=== PATIENT | female | born 1955 | race Caucasian/White ===

== ENCOUNTER 2018-08-30 02:52 | Observation (INO) | payer OTHER ==
[~2018-08-30] VITALS: Ht 162.6 cm; Wt 112.5 kg
[~2018-08-30 02:52] MED LIST: AMOX875T PO; CALC1TAB75 PO; ETOD400T PO; FOLI1TAB16 PO; HYDR-3165 PO; HYDR200T71 PO; LEVO137T3 PO; LOSA1TAB22 PO; METH25VI27 SQ; METR70GE14 VG; OFLO10DR21 OT; OMEP40CA5 PO; ONDA4TAB10 PO; ONDA4TAB7 PO; ONDA8TAB12 PO; PROC10TA57 PO; SENIOR MULTIVITAMIN PO; TRAM50TA PO
--- NOTE | 2018-08-30 03:16 | PHYS DOC ---
Adult General Chief Complaint Chief Complaint vomiting HPI HPI 63 years old female with multiple medical problem presented to the emergency department with vomiting and abdominal pain. Patient started yesterday last night she vomited most of the day yesterday and today, pain described as a sharp constant cramps and abdomen all over no urinary symptoms Review of Systems Review of Systems Constitutional: Denies fever or chills [] Eyes: Denies change in visual acuity, redness, or eye pain [] HENT: Denies nasal congestion or sore throat [] Respiratory: Denies cough or shortness of breath [] Cardiovascular: No additional information not addressed in HPI [] : Denies dysuria or hematuria [] Musculoskeletal: Denies back pain or joint pain [] Integument: Denies rash or skin lesions [] Neurologic: Denies headache, focal weakness or sensory changes [] Endocrine: Denies polyuria or polydipsia [] All other systems were reviewed and found to be within normal limits, except as documented in this note. Current Medications Current Medications Current Medications Medications (Trade) Dose Ordered Sig/Isac Start Time Stop Time Status Last Admin Dose Admin Info (Do NOT chart on this entry -- for MONITORING) 1 each PRN DAILY PRN 08/30/18 03:30 09/01/18 03:29 Iohexol (Omnipaque 300 Mg/ml) 75 ml 1X ONCE 08/30/18 03:30 08/30/18 03:31 DC 08/30/18 04:58 75 ML Morphine Sulfate (Morphine 4mg Syringe) 4 mg 1X ONCE 08/30/18 05:00 08/30/18 05:01 DC 08/30/18 04:31 4 MG Ondansetron HCl (Zofran) 4 mg 1X ONCE 08/30/18 04:45 08/30/18 04:48 DC 08/30/18 04:39 4 MG Sodium Chloride 1,000 ml @ 1,000 mls/hr 1X ONCE 08/30/18 03:30 08/30/18 04:29 DC 08/30/18 03:37 1,000 MLS/HR Allergies Allergies Allergies Coded Allergies Type Severity Reaction Last Updated Verified pneumococcal vaccine Allergy Unknown 08/30/18 No codeine Adverse Reaction Intermediate Nausea and Vomiting 08/30/18 Yes hydrocodone Adverse Reaction Intermediate Nausea and Vomiting 08/30/18 Yes Physical Exam Physical Exam Constitutional: Well developed, well nourished, no acute distress, non-toxic appearance. [] HENT: Normocephalic, atraumatic, bilateral external ears normal, oropharynx moist, no oral exudates, nose normal. [] Eyes: PERRLA, EOMI, conjunctiva normal, no discharge. [] Neck: Normal range of motion, no tenderness, supple, no stridor. [] Cardiovascular:Heart rate regular rhythm, no murmur [] Lungs & Thorax: Bilateral breath sounds clear to auscultation [] Abdomen: Bowel sounds normal, soft, tenderness all over, no masses, no pulsatile masses. [] Skin: Warm, dry, no erythema, no rash. [] Back: No tenderness, no CVA tenderness. [] Extremities: No tenderness, no cyanosis, no clubbing, ROM intact, no edema. [] Neurologic: Alert and oriented X 3, normal motor function, normal sensory function, no focal deficits noted. [] Psychologic: Affect normal, judgement normal, mood normal. [] Current Patient Data Vital Signs Vital Signs Date Time Temp Pulse Resp B/P (MAP) Pulse Ox O2 Delivery O2 Flow Rate FiO2 08/30/18 02:55 98.4 101 24 157/88 (111) 96 Room Air Lab Results Laboratory Tests Test 08/30/18 03:48 White Blood Count 9.5 x10^3/uL (4.0-11.0) Red Blood Count 3.87 x10^6/uL (3.50-5.40) Hemoglobin 13.9 g/dL (12.0-15.5) Hematocrit 40.4 % (36.0-47.0) Mean Corpuscular Volume 104 fL (79-100) H Mean Corpuscular Hemoglobin 36 pg (25-35) H Mean Corpuscular Hemoglobin Concent 34 g/dL (31-37) Red Cell Distribution Width 14.8 % (11.5-14.5) H Platelet Count 338 x10^3/uL (140-400) Neutrophils (%) (Auto) 95 % (31-73) H Lymphocytes (%) (Auto) 1 % (24-48) L Monocytes (%) (Auto) 3 % (0-9) Eosinophils (%) (Auto) 1 % (0-3) Basophils (%) (Auto) 0 % (0-3) Neutrophils # (Auto) 9.0 x10^3uL (1.8-7.7) H Lymphocytes # (Auto) 0.1 x10^3/uL (1.0-4.8) L Monocytes # (Auto) 0.3 x10^3/uL (0.0-1.1) Eosinophils # (Auto) 0.0 x10^3/uL (0.0-0.7) Basophils # (Auto) 0.0 x10^3/uL (0.0-0.2) Segmented Neutrophils % 83 % (35-66) H Band Neutrophils % 13 % (0-9) H Lymphocytes % 1 % (24-48) L Monocytes % 2 % (0-10) Basophils % 1 % (0-3) Platelet Estimate Adequate (ADEQUATE) Sodium Level 140 mmol/L (136-145) Potassium Level 4.1 mmol/L (3.5-5.1) Chloride Level 102 mmol/L (98-107) Carbon Dioxide Level 27 mmol/L (21-32) Anion Gap 11 (6-14) Blood Urea Nitrogen 28 mg/dL (7-20) H Creatinine 0.9 mg/dL (0.6-1.0) Estimated GFR (Cockcroft-Gault) 63.0 BUN/Creatinine Ratio 31 (6-20) H Glucose Level 135 mg/dL (70-99) H Calcium Level 8.4 mg/dL (8.5-10.1) L Total Bilirubin 0.5 mg/dL (0.2-1.0) Aspartate Amino Transferase (AST) 29 U/L (15-37) Alanine Aminotransferase (ALT) 49 U/L (14-59) Alkaline Phosphatase 109 U/L (46-116) Total Protein 7.2 g/dL (6.4-8.2) Albumin 3.3 g/dL (3.4-5.0) L Albumin/Globulin Ratio 0.8 (1.0-1.7) L Lipase 167 U/L (73-393) Influenza Type A (Rapid) Negative (NEGATIVE) Influenza Type B (Rapid) Negative (NEGATIVE) EKG EKG [] Radiology/Procedures Radiology/Procedures [] Course & Med Decision Making Course & Med Decision Making Pertinent Labs and Imaging studies reviewed. (See chart for details) [] Final Impression Final Impression [] Problems: (1) Vomiting Qualifiers: Qualified Codes: R11.2 - Nausea with vomiting, unspecified (2) Small bowel obstruction, partial Dragon Disclaimer Dragon Disclaimer This electronic medical record was generated, in whole or in part, using a voice recognition dictation system. GUMARO ARMENTA MD Aug 30, 2018 03:16
[2018-08-30] MEDS ORDERED: IV NORMAL SALINE 1,000ML 1,000 ML IV ONE (03:30)
[2018-08-30] MEDS ORDERED: CONTRAST GIVEN MC PRN (03:30)
[2018-08-30] MEDS ORDERED: ONDANSETRON PF 4 MG/2 ML VIAL. IV ONE ×2 (03:30→04:45)
[2018-08-30] MEDS ORDERED: IOHEXOL 300 MG/ML 75 ML VIAL. IV ONE (03:30)
[2018-08-30 04:20] LABS: BASO % 0 % (0-3); EOS % 1 % (0-3); HEMATOCRIT 40.4 % (36.0-47.0); HEMOGLOBIN 13.9 g/dL (12.0-15.5); LYMPH # 0.1 x10^3/uL (1.0-4.8); LYMPH % 1 % (24-48); MEAN CORPUSCULAR HEMOGLOBIN 36 pg (25-35); MEAN CORPUSCULAR HGB CONC 34 g/dL (31-37); MEAN CORPUSCULAR VOLUME 104 fL (79-100); MONO # 0.3 x10^3/uL (0.0-1.1); MONO % 3 % (0-9); NEUT % 95 % (31-73); PLATELET COUNT 338 x10^3/uL (140-400); RED BLOOD COUNT 3.87 x10^6/uL (3.50-5.40); RED CELL DISTRIBUTION WIDTH 14.8 % (11.5-14.5); WHITE BLOOD COUNT 9.5 x10^3/uL (4.0-11.0)
[2018-08-30] MEDS ORDERED: METH2.5T PO (04:20)
[2018-08-30] MEDS ORDERED: LEVO150T5 PO (04:20)
[2018-08-30 04:38] LABS: INFLUENZA A PATIENT NEGATIVE (NEGATIVE); INFLUENZA B PATIENT NEGATIVE (NEGATIVE)
[2018-08-30 04:46] LABS: ALBUMIN 3.3 g/dL (3.4-5.0); ALBUMIN/GLOBULIN RATIO 0.8 (1.0-1.7); CALCIUM 8.4 mg/dL (8.5-10.1); CREATININE 0.9 mg/dL (0.6-1.0); POTASSIUM 4.1 mmol/L (3.5-5.1); TOTAL BILIRUBIN 0.5 mg/dL (0.2-1.0); TOTAL PROTEIN 7.2 g/dL (6.4-8.2)
[2018-08-30 04:51] LABS: % BANDS 13 % (0-9); % BASOS 1 % (0-3); % LYMPHS 1 % (24-48); % MONOS 2 % (0-10); % SEGS 83 % (35-66)
[2018-08-30 04:52] LABS: PLT ESTIMATE ADEQUATE (ADEQUATE)
[2018-08-30] MEDS ORDERED: MORPHINE SULFATE 4 MG/ML DISP.SYRIN. IV ONE ×2 (05:00→07:30)
--- NOTE | 2018-08-30 05:42 | RAD ---
INDICATION: Omni 300 75cc: Abdomen pain, nausea, vomiting. 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 TECHNIQUE: Axial CT images obtained through the abdomen and pelvis with contrast. One or more of the following individualized dose reduction techniques were utilized for this examination: 1. Automated exposure control; 2. Adjustment of the mA and/or kV according to patient size; 3. Use of iterative reconstruction technique. FINDINGS: Linear opacity left lower lung. Given morphology could be atelectasis or scarring. Abdominal aorta is not aneurysmal. There are small amount of fluid in the distal esophagus. No intrahepatic bile duct dilation. No peripancreatic fluid collection. No spleen is seen. Superior to left kidney there is a soft tissue density structure identified measuring 27 x 20 mm. Lobulated appearance of the left kidney. No hydronephrosis. Right kidney is larger than left. Possible low-density lesion right kidney subcentimeter in size, not well evaluated. Urinary bladder is partially distended. Moderate stool within the colon. No periappendiceal inflammation. There are some prominent loops of small bowel identified which appear fluid-filled. These measure up to 27 mm which is mildly dilated. Multiple surgical clips in the pelvis. Degenerative changes throughout the spine with multilevel central canal and neural foraminal stenosis. Scoliotic curvature of spine. IMPRESSION: 1. Dilated loops of small bowel are seen within the abdomen with more distal decompression. This is a mild finding but if the patient has appropriate clinical setting this can be seen with a partial small bowel obstruction. 2. Soft tissue density structure is seen superior to left kidney. Given the lack of spleen is possible that this is secondary to a splenule however the CT appearance is nonspecific and if more accurate evaluation is desired a nuclear spleen scan could assess whether this is secondary to splenic tissue rather than an alternative cause of a soft tissue lesion in the area Electronically signed by: Deondre Chandler MD (08/30/2018 5:39 AM) [id number]
[2018-08-30] MEDS: ONDANSETRON PF 4 MG/2 ML VIAL. IV PRN ×4 (06:26→21:26)
[2018-08-30 08:11] VITALS: BP 123/71
[2018-08-30 10:41] VITALS: BP 131/73
[2018-08-30] MEDS: MORPHINE SULFATE 4 MG/ML DISP.SYRIN. IV PRN ×2 (12:58→18:30)
[2018-08-30] MEDS ORDERED: traMADol 50 MG TABLET PO PRN (14:00)
--- NOTE | 2018-08-30 14:30 | HP ---
ADMIT DATE: 08/30/2018 HISTORY OF PRESENT ILLNESS: The patient is a 63-year-old female patient, who came to the Emergency Room complaining of recurrent episodes of nausea, vomiting and abdominal pain. According to her, had her lunch around 11:30 at [employer] cafeteria and around 6:00 she started having nausea and vomiting and around 3:00 in the morning she was brought by the to the Emergency Room of [facility]. She did complain of sharp, constant, crampy abdominal pain all over. Denied any diarrhea. Denied any dysuria, frequency, or hematuria. She was extensively investigated in the Emergency Room. Her white cell count was normal. She was slightly dehydrated; however, her serology for influenza A and B were negative. CT scan of the abdomen and pelvis with IV contrast only showed that she has dilated loops of small bowel that are seen within the abdomen with more distal decompression. This is a mild finding, but if the patient has appropriate clinical setting this can be seen with partial small-bowel obstruction. She has soft tissue density. Structure is seen superior to the left kidney. Given lack of spleen this could be a splenule; however, CT appearance is nonspecific and if more accurate evaluation is desired a nuclear spleen scan could assess whether this is secondary to splenic tissue rather than an alternative cause of soft tissue lesion in that area. The patient was admitted, treated with IV fluid, IV pain medication and antiemetic. By the time I saw her, she has had no further episodes of nausea and vomiting. Her abdominal pain has largely subsided. PAST MEDICAL HISTORY: Significant for hypertension and hypothyroidism. She has lymphedema of her left lower extremity and rheumatoid arthritis. PAST SURGICAL HISTORY: Significant for left total knee arthroplasty, splenectomy and lacerated left kidney. All happened after she fell from horse. She has also total abdominal hysterectomy, bilateral salpingo-oophorectomy. 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 She has also seasonal hernia surgery. She underwent bilateral myringotomy tube placement as well as colonoscopy. ALLERGIES: She is allergic to CODEINE, HYDROCODONE, PNEUMOCOCCAL VACCINE. Apparently, she IS intolerant of CODEINE and HYDROCODONE rather than allergic to it. She has also problems with her sinuses and apparently was seen an coal shoveler and an sap pi architect and apparently her IgM in the blood is high and she is seeing oncologist with a plan to do a bone biopsy. MEDICATIONS: She is currently on the following medication; hydroxychloroquine sulfate 200 mg twice a day, methotrexate sodium 2.5 mg weekly, losartan/hydrochlorothiazide 100/25 one tablet once a day, etodolac 400 mg twice a day, tramadol 50 mg every 6 hours, calcium carbonate with vitamin D3 twice a day, Zofran 4 mg q.6 hourly, omeprazole 40 mg once a day, levothyroxine sodium 150 mcg once a day, miconazole 70 grams gel, MetroGel vaginal applied at bedtime, folic acid 1 mg once a day, multivitamin 1 tablet once a day. FAMILY HISTORY: She had one half-sister of type 2 diabetes, half-brother had sudden cardiac . Her full brother is in snf. Her mother at age of multiple myeloma at the age of 54 and father at the age of 72 of sudden cardiac . SOCIAL HISTORY: She is . She has an adopted daughter. She quit smoking in 1979. 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 REVIEW OF SYSTEMS: The patient denied any blurring of vision. Did have cataract that has not required any surgical intervention yet. Denied any glaucoma or macular degeneration, but did complain of stuffy nose and postnasal drip, sore throat, has nausea and vomiting. Apparently that stopped this morning. Denied any hematemesis, melena or hematochezia. Denied any dysuria, frequency or hematuria. Did complain of chills. PHYSICAL EXAMINATION: GENERAL: On arrival to the Emergency Room, she apparently was slightly tachypneic, but otherwise, there is no pallor, jaundice, cyanosis, or thyromegaly. No jugular venous distension. No lower limb edema. VITAL SIGNS: Her heart rate was 96, blood pressure was 157/88, temperature was 98, respiratory rate 24 and oxygen saturation was 96% on room air. HEAD, EYES, EARS, NOSE, AND THROAT: Showed she is normocephalic, atraumatic. NECK: Supple. HEART: Showed normal first and second heart sounds. No gallop, rub or murmur. CHEST: Clear to auscultation. No crepitation or rhonchi. ABDOMEN: Distended with diffuse tenderness according to the Emergency Room physician. Her abdomen was soft, nontender by the time I saw her in the hospital. NEUROLOGIC: She is awake, alert, responding appropriately. All cranial nerves intact. EXTREMITIES: She moves extremities without difficulty. She apparently ambulates without any assistance or assistive devices. LABORATORY DATA: On arrival to the Emergency Room showed that her white cell count was 9500, hemoglobin 13.9, hematocrit 40.4, MCV was 104 and platelet count of 338,000 with normal manual differential. Her serum sodium was 140, potassium 4.1, chloride 102, bicarbonate 27, anion gap of 11, BUN 28, creatinine was 0.9, estimated GFR was 63 mL per minute. Her glucose was 135, calcium was 8.4. Total bilirubin, AST, ALT, alkaline phosphatase were normal. Total protein was 7.2, albumin 3.3. Her serum lipase was normal at 167. Her CT scan showed that she has dilated loops of small bowel seen within the abdomen with more distal decompression. This is a mild finding, but if the patient has the appropriate clinical setting, this can be seen with partial small-bowel obstruction. She has soft tissue density structure seen superior to the left kidney. Given the lack of spleen. It is possible that this is secondary to a splenule; however, CT appearance is nonspecific and if more accurate evaluation is desired a nuclear scan could assess whether this is secondary to splenic tissue rather than an alternative cause of the soft tissue lesion in that area. ASSESSMENT AND PLAN: The patient was admitted and kept n.p.o. and was started on IV fluid, antiemetics and pain medication. By the time I saw her, she has had no further episodes of nausea and vomiting. Her abdomen seems to be soft and has no more tenderness of pain. PLAN: My plan is to start her on a clear liquid diet, continue with the antiemetic and pain medication. I would not resume her diuretics and antihypertensive medication as well as her nonsteroidal. Will repeat all her lab works tomorrow and if she has no further episodes of nausea, vomiting, and no abdominal pain and tolerating her food she can be discharged. ANDREA DOMINGUEZ MD DR: IVETTE/jocelyne JOB#: [id number] / [id number]
[2018-08-30 14:39] VITALS: BP 130/78
[2018-08-30] MEDS: CALCIUM CARB/VIT D3 500/200 TABLET PO SCH (15:37)
[2018-08-30 18:32] VITALS: BP 114/65
[2018-08-30] MEDS ORDERED: SUMA50TA3 PO (18:35)
[2018-08-30] MEDS ORDERED: CYCL-331 PO (18:36)
[2018-08-30] MEDS ORDERED: metroNIDAZOLE 0.75% VAGINAL 1 APP TUBE VG SCH (21:00)
[2018-08-30] MEDS ORDERED: CYCLOBENZAPRINE 10 MG TABLET. PO SCH (21:00)
[2018-08-30] MEDS: FOLIC ACID 1 MG TABLET PO SCH (21:19)
[2018-08-30] MEDS: HYDROXYCHLOROQUINE 200 MG TABLET PO SCH (21:20)
[2018-08-30] MEDS: SUMAtriptan SUCCINATE 50 MG TABLET PO PRN (21:21)
[2018-08-30 23:56] VITALS: BP 113/67
[2018-08-31 05:52] VITALS: BP 125/69
[2018-08-31] MEDS ORDERED: LEVOTHYROXINE 150 MCG TABLET PO SCH (06:00)
[2018-08-31 06:42] LABS: BASO # 0.1 x10^3/uL (0.0-0.2); BASO % 2 % (0-3); EOS # 0.1 x10^3/uL (0.0-0.7); EOS % 2 % (0-3); HEMATOCRIT 38.9 % (36.0-47.0); LYMPH # 0.6 x10^3/uL (1.0-4.8); LYMPH % 12 % (24-48); MEAN CORPUSCULAR HEMOGLOBIN 35 pg (25-35); MEAN CORPUSCULAR HGB CONC 33 g/dL (31-37); MEAN CORPUSCULAR VOLUME 106 fL (79-100); MONO # 0.5 x10^3/uL (0.0-1.1); MONO % 11 % (0-9); NEUT # 3.8 x10^3uL (1.8-7.7); NEUT % 74 % (31-73); PLATELET COUNT 294 x10^3/uL (140-400); RED BLOOD COUNT 3.69 x10^6/uL (3.50-5.40); RED CELL DISTRIBUTION WIDTH 14.6 % (11.5-14.5); WHITE BLOOD COUNT 5.1 x10^3/uL (4.0-11.0)
[2018-08-31 06:54] LABS: ALBUMIN 2.9 g/dL (3.4-5.0); ALBUMIN/GLOBULIN RATIO 0.7 (1.0-1.7); CALCIUM 8.3 mg/dL (8.5-10.1); CREATININE 0.9 mg/dL (0.6-1.0); POTASSIUM 3.9 mmol/L (3.5-5.1); TOTAL BILIRUBIN 0.2 mg/dL (0.2-1.0); TOTAL PROTEIN 6.9 g/dL (6.4-8.2)
[2018-08-31] MEDS ORDERED: PANTOPRAZOLE 40 MG TABLET. PO SCH (07:30)
[2018-08-31] MEDS: SUMAtriptan SUCCINATE 50 MG TABLET PO PRN (08:34)
[2018-08-31] MEDS: FOLIC ACID 1 MG TABLET PO SCH (08:34)
[2018-08-31] MEDS: HYDROXYCHLOROQUINE 200 MG TABLET PO SCH (08:34)
[2018-08-31] MEDS: CALCIUM CARB/VIT D3 500/200 TABLET PO SCH (08:35)
[2018-08-31 11:15] VITALS: BP 137/88
--- NOTE | 2018-08-31 13:47 | DS ---
DATE OF DISCHARGE: 08/31/2018 HOSPITAL COURSE: The patient is sitting up in her bed, in no apparent distress. She has had no further episodes of nausea or vomiting. She is passing gas. No abdominal pain. Her headache has resolved and she is ready to go home. PHYSICAL EXAMINATION: GENERAL: On examining her, she looked well and was clearly in no apparent respiratory distress. No pallor, jaundice, cyanosis, or thyromegaly. No jugular venous distension. No limb edema. VITAL SIGNS: Her heart rate was 80, blood pressure was 137/88, temperature was 98.2, respiratory rate 20, and oxygen saturation was 94%. HEAD, EYES, EARS, NOSE AND THROAT: Showed normocephalic, atraumatic. NECK: Supple. HEART: Showed normal first and second heart sounds with no gallop, rub or murmur. CHEST: Clear to auscultation. No crepitation or rhonchi. ABDOMEN: Distended, soft, nontender. No guarding or rigidity. No organomegaly. All hernial orifices intact. Bowel sounds normal. NEUROLOGIC: She is awake, alert, responding appropriately. Cranial nerves intact. She moves extremities without difficulty. She ambulates without assistance or assistive device. Her intake was 1100, output was 200. LABORATORY DATA: As of this morning, her white cell count was 5100, hemoglobin 13, hematocrit 39, MCV 106 and platelet count 194,000. Serum sodium was 140, potassium 3.9, chloride 102, bicarbonate 29, anion gap of 9, BUN 19, creatinine 0.9, estimated GFR was 63 mL per minute. Her glucose was 98, calcium was 8.3. Total bilirubin, AST, ALT, alkaline phosphatase were normal. Her total protein was 6.9, albumin 2.9. Her influenza A and B were negative. DISCHARGE MEDICATIONS: She will be discharged home to continue on following medications: Calcium carbonate with vitamin D one tablet twice a day, cyclobenzaprine 10 mg at bedtime, folic acid 1 mg twice a day, hydroxychloroquine sulfate 200 mg twice a day, levothyroxine sodium 150 mcg once a day, losartan/hydrochlorothiazide 100/25 one tablet once a day, methotrexate 2.5 mg weekly, MetroGel vaginal cream applied topically at bedtime, omeprazole 40 mg once a day, ondansetron for Zofran 4 mg every 6 hours, multivitamin 1 tablet once a day, sumatriptan succinate for Imitrex 50 mg as needed for migraine headache, tramadol 50 mg every 6 hours as needed. FINAL DISCHARGE DIAGNOSES: 1. Acute gastroenteritis, resolved. 2. Dehydration, resolved. The patient has multiple other medical problems including hypertension, hypothyroidism, rheumatoid arthritis and monoclonal gammopathy of IgM variety. ANDREA DOMINGUEZ MD DR: IVETTE/jocelyne JOB#: [id number] / [id number]
== END 2018-08-31 14:00 | disposition home or self-care (01) ==
LOC: ER 02:52 → 1 SOUTH 06:08
PROVIDERS: ADMIT Internal Medicine; ATTEND Internal Medicine
DX: K52.9 Noninfective gastroenteritis and colitis, unspecified (principal); E86.0 Dehydration; M06.9 Rheumatoid arthritis, unspecified; I10 Essential (primary) hypertension; E03.9 Hypothyroidism, unspecified; D47.2 Monoclonal gammopathy; Z79.899 Other long term (current) drug therapy; Z88.8 Allergy status to other drugs, medicaments and biological substances; Z96.652 Presence of left artificial knee joint; Z90.81 Acquired absence of spleen; Z90.710 Acquired absence of both cervix and uterus; Z87.891 Personal history of nicotine dependence; Z83.3 Family history of diabetes mellitus
CPT/HCPCS: 36415; 74177; 80053; 83690; 85007; 85025; 87804; 96361; 96374; 96375; 96376; 99284; G0378; J2270; J2405; Q9967; G0379; J7030

== ENCOUNTER 2022-01-10 04:59 | Emergency (ER) | payer OTHER ==
[~2022-01-10] VITALS: Ht 162.6 cm; Wt 109.1 kg
[~2022-01-10 04:59] MED LIST changes: +CALC-628 PO; -CALC1TAB75 PO; +CYCL10TA19 PO; -ETOD400T PO; +ETOD400T3 PO; +LEVO150T5 PO; +METH2.5T PO; -OMEP40CA5 PO; +OMEP40CA7 PO; +SUMA50TA3 PO
--- NOTE | 2022-01-10 05:03 | PHYS DOC ---
Past History Past Medical History: Arthritis, GERD, Hypertension, Hypothyroid, Migraines, Renal Disease, Sinusitis, Other Past Surgical History: Hysterectomy, Knee Replacement, Spleenectomy, Other Alcohol Use: None Drug Use: None General Adult HPI: HPI: ". .It all started yesterday.. no fever.. but had shaking chills.. 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 Patient's symptoms started yesterday.. Patient normally follows with Dr. Molina as primary. Patient has past medical history of hypertension, hypothyroidism, lymphedema, rheumatoid arthritis, UTI. sinusitis... P:t. has had Flu vaccination and Moderna x 3. Pt. has been exposed to sick pt.s at [facility]. Pt has hx of splenectomy. Review of Systems: Review of Systems: Constitutional: Hx of chills Eyes: Denies change in visual acuity HENT: Hx. nasal congestion and drainage Respiratory: Denies cough or shortness of breath Cardiovascular: Hx. of Tachycardia GI: Denies abdominal pain, nausea, vomiting, bloody stools or diarrhea : Denies dysuria Musculoskeletal: Denies back pain or joint pain Integument: Denies rash Neurologic: Denies headache, focal weakness or sensory changes Endocrine: Denies polyuria or polydipsia Lymphatic: Denies swollen glands Psychiatric: Denies depression or anxiety Family History: Family History: Noncontributory to presentation Current Medications: Current Meds: See nursing for home meds Allergies: Allergies: Allergies Coded Allergies Type Severity Reaction Last Updated Verified pneumococcal vaccine Allergy Unknown 08/30/18 No codeine Adverse Reaction Intermediate Nausea and Vomiting 08/30/18 Yes hydrocodone Adverse Reaction Intermediate Nausea and Vomiting 08/30/18 Yes Physical Exam: PE: Constitutional: Moderate acute distress, non-toxic appearance. [] HENT: Normocephalic, atraumatic, bilateral external ears normal, oropharynx moist, postnasal drainage no oral exudates, nose swollen turbinates, clear rhinorrhea Eyes: PERRLA, EOMI, conjunctiva normal, no discharge. Glasses Neck: Normal range of motion, no tenderness, supple, no stridor. [] Cardiovascular:Heart rate regular rhythm, no murmur [, PMI to left Lungs & Thorax: Bilateral breath sounds equal apex with few scattered wheezes auscultation [] Abdomen: Bowel sounds normal, soft, no tenderness, no masses, no pulsatile masses. Obese. Old surgery scars Skin: Warm, dry, no erythema, no rash. [] Back: No tenderness, no CVA tenderness. [] Extremities: Generalized muscle and joint tenderness, no cyanosis, no clubbing, ROM guarded, lower leg edema.. History of chronic lymphedema. No obvious cording Neurologic: Alert and oriented X 3, moves all extremities on request, has distal sensory,, no focal deficits noted. [] Psychologic: Affect anxious, judgement normal, mood depressed. EKG: EKG: Pt. unable lay still for EKG. 0530 hrs. [] Radiology/Procedures: Radiology/Procedures: Pending at shift change. [] Heart Score: C/O Chest Pain: N/A Risk Factors: Risk Factors: DM, Current or recent (<one month) smoker, HTN, HLP, family history of CAD, obesity. Risk Scores: Score 0 - 3: 2.5% MACE over next 6 weeks - Discharge Home Score 4 - 6: 20.3% MACE over next 6 weeks - Admit for Clinical Observation Score 7 - 10: 72.7% MACE over next 6 weeks - Early Invasive Strategies Course & Med Decision Making: Course & Med Decision Making Pertinent Labs and Imaging studies reviewed. (See chart for details) Labs, xrays and EKG pending at shift change. Pt. endorsed to Dr. Mishra at shift change. Impression: 1. Acute Exacerbation of Chronic Pain 2. Hx. Rheumatoid Arthritis 3. Hx. of HTN 4. Hx. Hypothryroid [] Dragon Disclaimer: Dragon Disclaimer: This electronic medical record was generated, in whole or in part, using a voice recognition dictation system. Departure Departure: Referrals: ORALIA MOLINA MD (PCP) [place] Disclaimer This chart was dictated in whole or in part using Voice Recognition software in a busy, high-work load, and often noisy Emergency Department environment. It may contain unintended and wholly unrecognized errors or omissions. Dragon Disclaimer This chart was dictated in whole or in part using Voice Recognition software in a busy, high-work load, and often noisy Emergency Department environment. It may contain unintended and wholly unrecognized errors or omissions. CHARLENE MCCARTNEY MD Jan 10, 2022 05:03
[2022-01-10] MEDS ORDERED: IV RINGERS SOLUTION,LACTATED 1,000 ML IV SCH (05:15)
[2022-01-10] MEDS ORDERED: KETOROLAC 30 MG/ML VIAL. IVP ONE (05:15)
[2022-01-10 05:54] VITALS: BP 141/80
[2022-01-10] MEDS ORDERED: methylPREDNISolone SOD SUCC PF 125 MG/2 ML VIAL. IV ONE (06:15)
[2022-01-10] MEDS ORDERED: MORPHINE SULFATE 10 MG/ML SYRINGE. SQ ONE (06:15)
[2022-01-10 06:19] LABS: AMPHETAMINE/METHAMPHETAMINE NEG (NEG); BARBITURATES NEG (NEG); BENZODIAZEPINES NEG (NEG); CANNABINOIDS NEG (NEG); COCAINE NEG (NEG); METHADONE NEG (NEG); OPIATES NEG (NEG); PHENCYCLIDINE NEG (NEG)
[2022-01-10 06:27] LABS: INFLUENZA A PATIENT NEGATIVE (NEGATIVE); INFLUENZA B PATIENT NEGATIVE (NEGATIVE)
[2022-01-10 06:29] LABS: CALCIUM 9.4 mg/dL (8.5-10.1); CREATININE 1.1 mg/dL (0.6-1.0); GFR 49.5
[2022-01-10 06:39] LABS: BACTERIA,URINE 0 /HPF (0-FEW); CLARITY,URINE CLEAR; COLOR,URINE YELLOW; GLUCOSE,URINE NEG (NEG); NITRITE,URINE NEG (NEG); RBC,URINE OCC /HPF (0-2); SQUAMOUS EPITHELIAL CELL,UR MOD /LPF; UROBILINOGEN,URINE 0.2 mg/dL (0.2 mg/dL); WBC,URINE 20-40 /HPF (0-4)
[2022-01-10 06:40] LABS: ALBUMIN 3.6 g/dL (3.4-5.0); DIRECT BILIRUBIN 0.2 mg/dL (0.0-0.2); MAGNESIUM 1.8 mg/dL (1.8-2.4); TOTAL BILIRUBIN 0.8 mg/dL (0.2-1.0)
--- NOTE | 2022-01-10 06:52 | RAD ---
AP chest x-ray HISTORY: Dyspnea, cough. FINDINGS: Heart size normal. Mediastinal silhouette is normal. No pneumothorax. No pulmonary opacitie s. Small left pleural effusion versus pleural thickening along the left diaphragm blunting the costop hrenic angle. Bones unremarkable. IMPRESSION: Small left pleural effusion along the diaphragm versus diaphragmatic pleural thickening. No pulmonary infiltrates. Electronically signed by: John Thibodeaux MD (01/10/2022 6:50 AM) [facility]
[2022-01-10 06:58] LABS: C REACTIVE PROTEIN 86.9 mg/L (0-3.3)
--- NOTE | 2022-01-10 07:14 | EKG ---
[address] [address] Test Date: 2022-01-10 Test Time: 07:06:11 Pat Name: PEYMAN JENSEN Department: Room: Gender: F Pulverizer Feeder: : [id number] Requested By: CHARLENE MCCARTNEY Order Number: [id number] Reading MD: Josh Brink Measurements Intervals [place] Rate: 94 P: 28 WV: 146 QRS: 65 QRSD: 106 T: 26 QT: 354 QTc: 448 Interpretive Statements SINUS RHYTHM Electronically Signed On 01-10-2022 18:03:38 CDT by Josh Brink
[2022-01-10 08:00] LABS: BASO % 0 % (0-3); EOS % 0 % (0-3); HEMATOCRIT 36.4 % (36.0-47.0); HEMOGLOBIN 11.9 g/dL (12.0-15.5); LYMPH # 0.4 x10^3/uL (1.0-4.8); LYMPH % 2 % (24-48); MEAN CORPUSCULAR HEMOGLOBIN 35 pg (25-35); MEAN CORPUSCULAR HGB CONC 33 g/dL (31-37); MEAN CORPUSCULAR VOLUME 107 fL (79-100); MONO # 0.6 x10^3/uL (0.0-1.1); MONO % 3 % (0-9); NEUT # 17.8 x10^3uL (1.8-7.7); NEUT % 94 % (31-73); PLATELET COUNT 231 x10^3/uL (140-400); RED BLOOD COUNT 3.42 x10^6/uL (3.50-5.40); RED CELL DISTRIBUTION WIDTH 14.5 % (11.5-14.5); WHITE BLOOD COUNT 18.8 x10^3/uL (4.0-11.0)
[2022-01-10] MEDS ORDERED: MORPHINE SULFATE 4 MG/ML DISP.SYRIN. IV ONE (08:00)
--- NOTE | 2022-01-10 08:09 | PHYS DOC ---
Past History Past Medical History: Arthritis, GERD, Hypertension, Hypothyroid, Migraines, Renal Disease, Sinusitis, Other Past Surgical History: Hysterectomy, Knee Replacement, Spleenectomy, Other Alcohol Use: None Drug Use: None General Adult EDM: Chief Complaint: GENERALIZED BODY ACHES HPI: HPI: Initial H&P dictated by Dr. Espinosa. Please see his chart for specifics. Current Medications: Current Meds: Current Medications Medications (Trade) Dose Ordered Sig/Isac Start Time Stop Time Status Last Admin Dose Admin Ketorolac Tromethamine (Toradol 30mg Vial) 30 mg 1X ONCE 01/10/22 05:15 01/10/22 05:16 DC 01/10/22 05:53 30 MG Lactated Ringer's 1,000 ml @ 100 mls/hr Q10H 01/10/22 05:15 01/10/22 15:14 01/10/22 05:53 100 MLS/HR Methylprednisolone Sodium Succinate (SOLU-Medrol 125MG VIAL) 125 mg 1X ONCE 01/10/22 06:15 01/10/22 06:19 DC 01/10/22 06:25 125 MG Morphine Sulfate (Morphine 10mg Syringe) 10 mg 1X ONCE 01/10/22 06:15 01/10/22 06:19 DC 01/10/22 06:24 10 MG Morphine Sulfate (Morphine 4mg Syringe) 4 mg 1X ONCE 01/10/22 08:00 01/10/22 08:01 DC Allergies: Allergies: Allergies Coded Allergies Type Severity Reaction Last Updated Verified pneumococcal vaccine Allergy Unknown 08/30/18 No codeine Adverse Reaction Intermediate Nausea and Vomiting 08/30/18 Yes hydrocodone Adverse Reaction Intermediate Nausea and Vomiting 08/30/18 Yes Current Patient Data: Labs: Laboratory Tests Test 01/10/22 05:05 01/10/22 05:15 01/10/22 05:40 01/10/22 07:46 Urine Collection Type Unknown Urine Color Yellow Urine Clarity Clear Urine pH 6.5 Urine Specific Nolan >=1.030 Urine Protein Neg (NEG-TRACE) Urine Glucose (UA) Neg mg/dL (NEG) Urine Ketones (Stick) Neg mg/dL (NEG) Urine Blood Trace (NEG) Urine Nitrite Neg (NEG) Urine Bilirubin Neg (NEG) Urine Urobilinogen Dipstick 0.2 mg/dL (0.2 mg/dL) Urine Leukocyte Esterase Small (NEG) Urine RBC Occ /HPF (0-2) Urine WBC 20-40 /HPF (0-4) Urine Squamous Epithelial Cells Mod /LPF Urine Transitional Epithelial Cells Few /LPF Urine Bacteria 0 /HPF (0-FEW) Urine Opiates Screen Neg (NEG) Urine Methadone Screen Neg (NEG) Urine Barbiturates Neg (NEG) Urine Phencyclidine Screen Neg (NEG) Urine Amphetamine/Methamphetamine Neg (NEG) Urine Benzodiazepines Screen Neg (NEG) Urine Cocaine Screen Neg (NEG) Urine Cannabinoids Screen Neg (NEG) Urine Ethyl Alcohol Neg (NEG) Influenza Type A (Rapid) Negative (NEGATIVE) Influenza Type B (Rapid) Negative (NEGATIVE) SARS-CoV-2 Antigen (Rapid) Negative (NEGATIVE) Activated Partial Thromboplast Time 21 SEC (23-33) L D-Dimer (Susan) 0.51 mg/L (0.00-0.50) H Sodium Level 141 mmol/L (136-145) Potassium Level 5.0 mmol/L (3.5-5.1) Chloride Level 103 mmol/L (98-107) Carbon Dioxide Level 30 mmol/L (21-32) Anion Gap 8 (6-14) Blood Urea Nitrogen 33 mg/dL (7-20) H Creatinine 1.1 mg/dL (0.6-1.0) H Estimated GFR (Cockcroft-Gault) 49.5 Glucose Level 103 mg/dL (70-99) H Lactic Acid Level 1.4 mmol/L (0.4-2.0) Calcium Level 9.4 mg/dL (8.5-10.1) Magnesium Level 1.8 mg/dL (1.8-2.4) Total Bilirubin 0.8 mg/dL (0.2-1.0) Direct Bilirubin 0.2 mg/dL (0.0-0.2) Aspartate Amino Transferase (AST) 47 U/L (15-37) H Alanine Aminotransferase (ALT) 72 U/L (14-59) H Alkaline Phosphatase 82 U/L (46-116) Creatine Kinase 80 U/L (26-192) C-Reactive Protein 86.9 mg/L (0-3.3) H VH-Vil-J-Type Natriuretic Peptide 725 pg/mL (0-124) H Total Protein 7.0 g/dL (6.4-8.2) Albumin 3.6 g/dL (3.4-5.0) Lipase 75 U/L (73-393) White Blood Count 18.8 x10^3/uL (4.0-11.0) H Red Blood Count 3.42 x10^6/uL (3.50-5.40) L Hemoglobin 11.9 g/dL (12.0-15.5) L Hematocrit 36.4 % (36.0-47.0) Mean Corpuscular Volume 107 fL (79-100) H Mean Corpuscular Hemoglobin 35 pg (25-35) Mean Corpuscular Hemoglobin Concent 33 g/dL (31-37) Red Cell Distribution Width 14.5 % (11.5-14.5) Platelet Count 231 x10^3/uL (140-400) Neutrophils (%) (Auto) 94 % (31-73) H Lymphocytes (%) (Auto) 2 % (24-48) L Monocytes (%) (Auto) 3 % (0-9) Eosinophils (%) (Auto) 0 % (0-3) Basophils (%) (Auto) 0 % (0-3) Neutrophils # (Auto) 17.8 x10^3uL (1.8-7.7) H Lymphocytes # (Auto) 0.4 x10^3/uL (1.0-4.8) L Monocytes # (Auto) 0.6 x10^3/uL (0.0-1.1) Eosinophils # (Auto) 0.0 x10^3/uL (0.0-0.7) Basophils # (Auto) 0.0 x10^3/uL (0.0-0.2) Platelet Estimate Pending Vital Signs: Vital Signs Date Time Temp Pulse Resp B/P (MAP) Pulse Ox O2 Delivery O2 Flow Rate FiO2 01/10/22 06:35 92 Nasal Cannula 2.0 01/10/22 06:24 24 01/10/22 05:54 99 141/80 (100) 01/10/22 05:03 97.9 EKG: EKG: [] Twelve-lead EKG demonstrates a sinus rhythm with a rate of 94. MO and QT corrected intervals are within normal limits. QRS is slightly prolonged at 106 ms. Nonspecific bundle delay pattern. No significant ST elevation or depression. Radiology/Procedures: Radiology/Procedures: [] Impressions: PATIENT: PEYMAN JENSEN AACCOUNT: [id number] : 1955 LOCATION: ER AGE: 66 SEX: F EXAM STATUS: REG ER ORD. PHYSICIAN: CHARLENE ESPINOSA MD REASON: dyspnea, cough PROCEDURE: PORTABLE CHEST 1V AP chest x-ray HISTORY: Dyspnea, cough. FINDINGS: Heart size normal. Mediastinal silhouette is normal. No pneumothorax. No pulmonary opacities. Small left pleural effusion versus pleural thickening along the left diaphragm blunting the costophrenic angle. Bones unremarkable. IMPRESSION: Small left pleural effusion along the diaphragm versus diaphragmatic pleural thickening. No pulmonary infiltrates. Electronically signed by: Rex Thibodeaux MD (01/10/2022 6:50 AM) [facility] [place] DICTATED AND SIGNED BY: REX THIBODEAUX MD DATE: 01/10/22647 CC: CHARLENE ESPINOSA MD; ORALIA MOLINA MD; ELAINA TAYLOR MD ~ Heart Score: C/O Chest Pain: N/A Risk Factors: Risk Factors: DM, Current or recent (<one month) smoker, HTN, HLP, family history of CAD, obesity. Risk Scores: Score 0 - 3: 2.5% MACE over next 6 weeks - Discharge Home Score 4 - 6: 20.3% MACE over next 6 weeks - Admit for Clinical Observation Score 7 - 10: 72.7% MACE over next 6 weeks - Early Invasive Strategies Course & Med Decision Making: Course & Med Decision Making Pertinent Labs and Imaging studies reviewed. (See chart for details) [] This is a 66-year-old female with a history of rheumatoid arthritis. She presents with pain flareup. She was given 125 mg of Solu-Medrol IV as well as 4 morphine IV and 10 of morphine subcu. On lab studies she does have evidence of urinary tract infection. Her white count was 18.8 but she has been on steroids recently. She has been afebrile since arrival to the ED and does feel much better. The rest of her lab work is unrevealing. We will have her continue the steroid tapering schedule that she is currently on. We will give her prescriptions for Zofran and Percocet as well. She is to follow-up with her primary care physician in the next few days if symptoms are not improving, return to the emergency department if they become worse or other concerns arise, she is stable for discharge at this time. Rambo Disclaimer: Rambo Disclaimer: This electronic medical record was generated, in whole or in part, using a voice recognition dictation system. Departure Departure: Impression: Primary Impression: Rheumatoid arthritis flare Additional Impression: UTI (urinary tract infection) Disposition: HOME / SELF CARE / HOMELESS Condition: STABLE Referrals: ORALIA MOLINA MD (PCP) Patient Instructions: Rheumatoid Arthritis, Urinary Tract Infection Scripts Ondansetron (ONDANSETRON ODT) 4 Mg Tab.rapdis 4 MG PO Q6HRS for nausea for 5 Days, #20 TAB Prov: ELAINA TAYLOR MD 01/10/22 Oxycodone HCl/Acetaminophen (Percocet 5-325 mg Tablet) 1 Each Tablet 1-2 EACH PO Q6HRS for pain, #20 TAB Prov: ELAINA TAYLOR MD 01/10/22 Sulfamethoxazole/Trimethoprim (BACTRIM DS TABLET) 1 Each Tablet 1 TAB PO BID for uti for 3 Days, #6 TAB 0 Refills Prov: ELAINA TAYLOR MD 01/10/22 ELAINA TAYLOR MD Jan 10, 2022 08:09
[2022-01-10] MEDS ORDERED: OXYC-325 PO (09:20)
[2022-01-10] MEDS ORDERED: ONDA4TAB12 PO (09:20)
[2022-01-10] MEDS ORDERED: SULF1TAB24 PO (09:20)
[2022-01-10 09:57] LABS: % BANDS 14 % (0-9); % LYMPHS 10 % (24-48); % MONOS 2 % (0-10); % SEGS 74 % (35-66); NUCLEATED RBC 1
[2022-01-10 09:59] LABS: TARGET CELLS PRESENT
[2022-01-10 10:03] LABS: PLT ESTIMATE ADEQUATE (ADEQUATE)
== END 2022-01-10 09:31 | disposition home or self-care (01) ==
LOC: ER 04:59
DX: G89.29 Other chronic pain (principal); N39.0 Urinary tract infection, site not specified; M06.9 Rheumatoid arthritis, unspecified; I10 Essential (primary) hypertension; E03.9 Hypothyroidism, unspecified; K21.9 Gastro-esophageal reflux disease without esophagitis; G43.909 Migraine, unspecified, not intractable, without status migrainosus; Z20.822 Contact with and (suspected) exposure to COVID-19; Z88.7 Allergy status to serum and vaccine; Z88.5 Allergy status to narcotic agent
CPT/HCPCS: 36415; 71045; 80048; 80076; 80307; 81001; 82550; 83605; 83690; 83735; 83880; 84443; 84484; 85007; 85025; 85379; 85730; 86140; 87040; 87077; 87086; 87147; 87186; 87428; 93005; 96361; 96372; 96374; 96375; 99285; J1885; J2270; J2930; J7120

== ENCOUNTER → 2022-01-22 | Outpatient (CLI) | payer OTHER ==
[2022-01-10 05:54] VITALS: BP 141/80
[~2022-01-22] MED LIST changes: +ONDA4TAB12 PO; +OXYC-325 PO; +SULF1TAB24 PO
[2022-01-22 11:07] LABS: BASO % 0 % (0-3); EOS # 0.1 x10^3/uL (0.0-0.7); EOS % 1 % (0-3); HEMATOCRIT 34.8 % (36.0-47.0); HEMOGLOBIN 11.2 g/dL (12.0-15.5); LYMPH # 2.1 x10^3/uL (1.0-4.8); LYMPH % 17 % (24-48); MEAN CORPUSCULAR HEMOGLOBIN 34 pg (25-35); MEAN CORPUSCULAR HGB CONC 32 g/dL (31-37); MEAN CORPUSCULAR VOLUME 105 fL (79-100); MONO # 1.1 x10^3/uL (0.0-1.1); MONO % 10 % (0-9); NEUT # 8.6 x10^3uL (1.8-7.7); NEUT % 72 % (31-73); PLATELET COUNT 430 x10^3/uL (140-400); RED BLOOD COUNT 3.31 x10^6/uL (3.50-5.40); RED CELL DISTRIBUTION WIDTH 14.2 % (11.5-14.5)
[2022-01-22 11:17] LABS: C REACTIVE PROTEIN 33.2 mg/L (0-3.3); CREATININE 1.1 mg/dL (0.6-1.0); GFR 49.5
[2022-01-22 12:52] LABS: SEDIMENTATION RATE 42 (0-25)
== END ==
LOC: SPEC 10:33
PROVIDERS: ATTEND Internal Medicine Infectious Disease
DX: Z45.2 Encounter for adjustment and management of vascular access device (principal)
CPT/HCPCS: 36415; 82565; 84520; 85025; 85651; 86140

== ENCOUNTER → 2022-01-29 | Outpatient (CLI) | payer OTHER ==
[2022-01-10 05:54] VITALS: BP 141/80
[2022-01-29 10:34] LABS: BASO # 0.1 x10^3/uL (0.0-0.2); BASO % 1 % (0-3); EOS # 0.1 x10^3/uL (0.0-0.7); EOS % 1 % (0-3); HEMATOCRIT 34.9 % (36.0-47.0); HEMOGLOBIN 11.5 g/dL (12.0-15.5); LYMPH # 2.9 x10^3/uL (1.0-4.8); LYMPH % 27 % (24-48); MEAN CORPUSCULAR HEMOGLOBIN 35 pg (25-35); MEAN CORPUSCULAR HGB CONC 33 g/dL (31-37); MEAN CORPUSCULAR VOLUME 105 fL (79-100); MONO # 1.1 x10^3/uL (0.0-1.1); MONO % 11 % (0-9); NEUT # 6.4 x10^3uL (1.8-7.7); NEUT % 61 % (31-73); PLATELET COUNT 394 x10^3/uL (140-400); RED BLOOD COUNT 3.32 x10^6/uL (3.50-5.40); RED CELL DISTRIBUTION WIDTH 14.1 % (11.5-14.5); WHITE BLOOD COUNT 10.6 x10^3/uL (4.0-11.0)
[2022-01-29 10:42] LABS: C REACTIVE PROTEIN 27.2 mg/L (0-3.3); GFR 55.3
[2022-01-29 12:02] LABS: SEDIMENTATION RATE 38 (0-25)
== END ==
LOC: SPEC 09:58
PROVIDERS: ATTEND Internal Medicine Infectious Disease
DX: Z45.2 Encounter for adjustment and management of vascular access device (principal)
CPT/HCPCS: 36415; 82565; 84520; 85025; 85651; 86140

== ENCOUNTER → 2022-02-05 | Outpatient (CLI) | payer OTHER ==
[2022-01-10 05:54] VITALS: BP 141/80
[2022-02-05 10:31] LABS: BASO # 0.1 x10^3/uL (0.0-0.2); BASO % 1 % (0-3); EOS # 0.1 x10^3/uL (0.0-0.7); EOS % 1 % (0-3); HEMATOCRIT 34.5 % (36.0-47.0); HEMOGLOBIN 11.3 g/dL (12.0-15.5); LYMPH # 2.7 x10^3/uL (1.0-4.8); LYMPH % 34 % (24-48); MEAN CORPUSCULAR HEMOGLOBIN 34 pg (25-35); MEAN CORPUSCULAR HGB CONC 33 g/dL (31-37); MEAN CORPUSCULAR VOLUME 105 fL (79-100); MONO # 0.7 x10^3/uL (0.0-1.1); MONO % 9 % (0-9); NEUT # 4.4 x10^3uL (1.8-7.7); NEUT % 55 % (31-73); PLATELET COUNT 267 x10^3/uL (140-400); RED BLOOD COUNT 3.27 x10^6/uL (3.50-5.40); RED CELL DISTRIBUTION WIDTH 14.1 % (11.5-14.5); WHITE BLOOD COUNT 8.1 x10^3/uL (4.0-11.0)
[2022-02-05 11:19] LABS: C REACTIVE PROTEIN 53.8 mg/L (0-3.3); CREATININE 1.3 mg/dL (0.6-1.0); GFR 40.9
[2022-02-05 12:33] LABS: SEDIMENTATION RATE 48 (0-25)
== END ==
LOC: SPEC 10:06
PROVIDERS: ATTEND Internal Medicine Infectious Disease
DX: Z45.2 Encounter for adjustment and management of vascular access device (principal)
CPT/HCPCS: 36415; 82565; 84520; 85025; 85651; 86140